=== PATIENT | male | born 1985 | race Hispanic/Latino ===

== ENCOUNTER 2019-09-02 00:52 | Emergency (ER) | payer SELFPAY ==
[2019-09-02] MEDS ORDERED: AMOX/K CLAV 875 MG TAB ONE (01:21)
[2019-09-02] MEDS ORDERED: HYDROCODONE/APAP 10/325 TAB ONE (01:24)
[2019-09-02] MEDS ORDERED: ONDANSETRON 4 MG (ODT) TAB ONE (01:24)
--- NOTE | 2019-09-02 02:05 | ER ---
Nurse's Notes [facility] Name: Adrian Troncoso Age: 34 yrs Sex: Male : 1985 Arrival Date: 09/02/2019 Time: 01:01 Bed 4 Private MD: Diagnosis: Epistaxis;Fracture of nasal bones Presentation: 09/02 01:00 Presenting complaint: Patient states: that he was using a spring loaded shovel to get fc the tile up and when he let go of it with one hand the shovel came back and hit him in the nose. Transition of care: patient was not received from another setting of care. Onset of symptoms was September 02, 2019 at 00:30. Risk Assessment: Do you want to hurt yourself or someone else? Patient reports no desire to harm self or others. Initial Sepsis Screen: Does the patient meet any 2 criteria? No. Patient's initial sepsis screen is negative. Does the patient have a suspected source of infection? No. Patient's initial sepsis screen is negative. Care prior to arrival: Bleeding of injury controlled. 01:00 Method Of Arrival: Ambulatory fc 01:00 Acuity: FRAN 3 fc Historical: - Allergies: 01:09 No Known Allergies; fc - Home Meds: 01:09 None [Active]; fc - PMHx: 01:09 None; fc - PSHx: 01:09 Left forearm surg; fc - Immunization history:: Last tetanus immunization: up to date Flu vaccine is up to date. - Social history:: Smoking status: Patient/guardian denies using tobacco, Patient uses alcohol, occasionally. Patient/guardian denies using street drugs. - Ebola Screening: : Patient negative for fever greater than or equal to 101.5 degrees Fahrenheit, and additional compatible Ebola Virus Disease symptoms Patient denies exposure to infectious person Patient denies travel to an Ebola-affected area in the 21 days before illness onset. Screenin:08 Abuse screen: Denies threats or abuse. Nutritional screening: No deficits noted. fc Tuberculosis screening: No symptoms or risk factors identified. Fall Risk None identified. Assessment: 01:16 General: Appears in no apparent distress. uncomfortable, Behavior is calm, cooperative, jd3 appropriate for age. Pain: Complains of pain in nose Quality of pain is described as pressure, sharp, tender. Neuro: Level of Consciousness is awake, alert, obeys commands, Oriented to person, place, time, situation, Pupils are PERRLA, Denies blurred vision dizziness, numbness diplopia. Cardiovascular: Capillary refill < 3 seconds Patient's skin is warm and dry. Respiratory: Airway is patent Respiratory effort is even, unlabored, Respiratory pattern is regular, symmetrical, Denies cough, shortness of breath. GI: No signs and/or symptoms were reported involving the gastrointestinal system. : No signs and/or symptoms were reported regarding the genitourinary system. EENT: Nares with bleeding noted dried blood noted to NEENA nares. Derm: Skin is intact, Skin is dry, Skin is normal, Skin temperature is warm. Musculoskeletal: Circulation, motion, and sensation intact. Range of motion: intact in all extremities. 02:13 Reassessment: Patient and/or family updated on plan of care and expected duration. Pain bb level reassessed. Patient is alert, oriented x 3, equal unlabored respirations, skin warm/dry/pink. pt verbalized understanding of and agrees to plan of care discharge instructions given. Vital Signs: 01:00 BP 137 / 81; Pulse 84; Resp 18; Temp 98.0(TE); Pulse Ox 99% on R/A; Weight 83.91 kg fc (R); Height 5 ft. 8 in. (172.72 cm); Pain 7/10; 02:14 BP 121 / 77; Pulse 61; Resp 14 S; Temp 97.8(TE); Pulse Ox 97% ; Pain 8/10; bb 01:00 Body Mass Index 28.13 (83.91 kg, 172.72 cm) ED Course: 01:00 Arm band placed on Patient placed in an exam room, on a stretcher. 01:00 Patient has correct armband on for positive identification. Bed in low position. Call light in reach. Side rails up X 1. Pulse ox on. NIBP on. 01:00 No provider procedures requiring assistance completed. 01:01 Patient arrived in ED. cf2 01:03 Emory Long MD is Attending Physician. nelly 01:07 Triage completed. fc 01:12 Curt Tran RN is Primary Nurse. jd3 02:04 Emory Long MD is Referral Physician. nelly 02:04 Thais Martinez MD is Referral Physician. nelly 02:14 Patient did not have IV access during this emergency room visit. bb 02:24 Nasal Bones XRAY In Process Unspecified. EDMS Administered Medications: 01:25 Drug: Augmentin 875 mg Route: PO; jd3 02:15 Follow up: Response: No adverse reaction bb 01:25 Drug: Zofran 4 mg Route: PO; jd3 02:15 Follow up: Response: No adverse reaction bb 01:25 Drug: [place] 10 mg-325 mg 1 tabs Route: PO; jd3 02:15 Follow up: Response: No adverse reaction; RASS: Alert and Calm (0) bb Outcome: 02:04 Discharge ordered by MD. nelly 02:14 Discharged to home ambulatory, with family. bb 02:14 Condition: stable 02:14 Discharge instructions given to patient, Instructed on discharge instructions, follow up and referral plans. no driving heavy equipment, medication usage, Demonstrated understanding of instructions, follow-up care, medications, Prescriptions given X 3. 02:37 Patient left the ED. ea Signatures: Dispatcher [employer] EDMS Emory Long MD MD cha Chretien, Felicia, RN RN Brenda Jordan RN RN Esme Mobley RN Curt Fraga ea, RN RN Cielo Blakely cf2 Corrections: (The following items were deleted from the chart) 01:09 01:00 BP 137 / 81; Pulse 84bpm; Resp 08bpm; Pulse Ox 99% RA; Temp 98.0F Temporal; 83.91 fc kg Reported; Height 5 ft. 8 in.; BMI: 28.1; Pain 7/10; fc
--- NOTE | 2019-09-02 02:06 | EDPHYS ---
Physician Documentation [facility] Name: Adrian Troncoso Age: 34 yrs Sex: Male : 1985 Arrival Date: 09/02/2019 Time: 01:01 Bed 4 Private MD: ED Physician Eomry Long HPI: 09/02 01:15 This 34 yrs old Male presents to ER via Ambulatory with complaints of Nose nelly Problem. 01:15 The patient presents with a nose bleed, that is apparently anterior, occurred after nelly direct blow, that is continuous bright red, nasal trauma, from. Onset: The symptoms/episode began/occurred just prior to arrival. Modifying factors: The symptoms are alleviated by lying down, pressure, the symptoms are aggravated by blowing nose, sitting up. Associated signs and symptoms: Pertinent positives: bleeding, rhinorrhea. Severity of symptoms: At their worst the symptoms were mild moderate in the emergency department the symptoms have improved moderately. The patient has not experienced similar symptoms in the past. Historical: - Allergies: 01:09 No Known Allergies; fc - Home Meds: 01: None [Active]; fc - PMHx: : None; fc - PSHx: 01:09 Left forearm surg; fc - Immunization history:: Last tetanus immunization: up to date Flu vaccine is up to date. - Social history:: Smoking status: Patient/guardian denies using tobacco, Patient uses alcohol, occasionally. Patient/guardian denies using street drugs. - Ebola Screening: : Patient negative for fever greater than or equal to 101.5 degrees Fahrenheit, and additional compatible Ebola Virus Disease symptoms Patient denies exposure to infectious person Patient denies travel to an Ebola-affected area in the 21 days before illness onset. ROS: 01:18 Constitutional: Negative for fever, chills, and weight loss, Eyes: Negative for injury, nelly pain, redness, and discharge, Neck: Negative for injury, pain, and swelling, Cardiovascular: Negative for chest pain, palpitations, and edema, Respiratory: Negative for shortness of breath, cough, wheezing, and pleuritic chest pain, Abdomen/GI: Negative for abdominal pain, nausea, vomiting, diarrhea, and constipation, Back: Negative for injury and pain, : Negative for injury, bleeding, discharge, and swelling, MS/Extremity: Negative for injury and deformity, Skin: Negative for injury, rash, and discoloration, Neuro: Negative for headache, weakness, numbness, tingling, and seizure, Psych: Negative for depression, anxiety, suicide ideation, homicidal ideation, and hallucinations, Allergy/Immunology: Negative for hives, rash, and allergies, Endocrine: Negative for neck swelling, polydipsia, polyuria, polyphagia, and marked weight changes, Hematologic/Lymphatic: Negative for swollen nodes, abnormal bleeding, and unusual bruising. 01:18 ENT: Positive for injury or acute deformity, of the nose, nose bleed. Exam: 01:18 Constitutional: This is a well developed, well nourished patient who is awake, alert, nelly and in no acute distress. Head/Face: Normocephalic, atraumatic. Eyes: Pupils equal round and reactive to light, extra-ocular motions intact. Lids and lashes normal. Conjunctiva and sclera are non-icteric and not injected. Cornea within normal limits. Periorbital areas with no swelling, redness, or edema. Neck: Trachea midline, no thyromegaly or masses palpated, and no cervical lymphadenopathy. Supple, full range of motion without nuchal rigidity, or vertebral point tenderness. No Meningismus. Chest/axilla: Normal chest wall appearance and motion. Nontender with no deformity. No lesions are appreciated. Cardiovascular: Regular rate and rhythm with a normal S1 and S2. No gallops, murmurs, or rubs. Normal PMI, no JVD. No pulse deficits. Respiratory: Lungs have equal breath sounds bilaterally, clear to auscultation and percussion. No rales, rhonchi or wheezes noted. No increased work of breathing, no retractions or nasal flaring. Abdomen/GI: Soft, non-tender, with normal bowel sounds. No distension or tympany. No guarding or rebound. No evidence of tenderness throughout. Back: No spinal tenderness. No costovertebral tenderness. Full range of motion. Male : Normal genitalia with no discharge or lesions. Skin: Warm, dry with normal turgor. Normal color with no rashes, no lesions, and no evidence of cellulitis. MS/ Extremity: Pulses equal, no cyanosis. Neurovascular intact. Full, normal range of motion. Neuro: Awake and alert, GCS 15, oriented to person, place, time, and situation. Cranial nerves II-XII grossly intact. Motor strength 5/5 in all extremities. Sensory grossly intact. Cerebellar exam normal. Normal gait. Psych: Awake, alert, with orientation to person, place and time. Behavior, mood, and affect are within normal limits. 01:18 ENT: Posterior pharynx: Airway: normal, no evidence of obstruction, Tonsils: are normal in appearance, Uvula: normal, midline, non-edematous, no erythema, swelling, that is mild, erythema, is not appreciated, exudate, is not appreciated, peritonsillar mass, is not appreciated. Vital Signs: 01:00 BP 137 / 81; Pulse 84; Resp 18; Temp 98.0(TE); Pulse Ox 99% on R/A; Weight 83.91 kg fc (R); Height 5 ft. 8 in. (172.72 cm); Pain 7/10; 02:14 BP 121 / 77; Pulse 61; Resp 14 S; Temp 97.8(TE); Pulse Ox 97% ; Pain 8/10; bb 01:00 Body Mass Index 28.13 (83.91 kg, 172.72 cm) MDM: 01:03 Patient medically screened. [facility] 01:24 Data reviewed: radiologic studies, plain films. [facility] 09/02 01:14 Order name: Nasal Bones XRAY [facility] 09/02 01:14 Order name: Ice pack; Complete Time: 01:18 [facility] Administered Medications: 01:25 Drug: Augmentin 875 mg Route: PO; jd3 02:15 Follow up: Response: No adverse reaction 01:25 Drug: Zofran 4 mg Route: PO; jd3 02:15 Follow up: Response: No adverse reaction 01:25 Drug: [place] 10 mg-325 mg 1 tabs Route: PO; jd3 02:15 Follow up: Response: No adverse reaction; RASS: Alert and Calm (0) bb Disposition: 09/02/19 02:04 Discharged to Home. Impression: Epistaxis, Fracture of nasal bones. - Condition is Stable. - Discharge Instructions: Nosebleed, Adult, Nosebleed, [id number]. - Prescriptions for Augmentin 875- 125 mg Oral Tablet - take 1 tablet by ORAL route every 12 hours for 10 days; 20 tablet. Tylenol- Codeine #3 300-30 mg Oral Tablet - take 2 tablets by ORAL route every 6 hours As needed; 24 tablet. Afrin (oxymetazoline) 0.05 % Nasal Aerosol, [place] - spray 2 spray by INTRANASAL route 2 times per day; 1 Container. - Medication Reconciliation Form, Thank You Letter, Antibiotic Education, Prescription Opioid Use form. - Follow up: Dr. Emory Long; When: 1 - 2 days; Reason: Recheck today's complaints, Continuance of care, Re-evaluation by your physician. Follow up: Thais Martinez; When: 2 - 3 days; Reason: Recheck today's complaints, Re-evaluation by your physician. - Problem is new. - Symptoms are resolved. Signatures: Dispatcher [employer] EDMS Emory oLng MD MD cha Chretien, Felicia RN RN Esme Galaviz RN RN ea Davies, Jonathon, RN RN jd3 Ballard, Brenda RN bb Corrections: (The following items were deleted from the chart) 02:37 02:04 09/02/2019 02:04 Discharged to Home. Impression: Epistaxis; Fracture of nasal ea bones. Condition is Stable. Discharge Instructions: Nosebleed, Adult, Nosebleed, [id number]. Prescriptions for Augmentin 875-125 mg Oral Tablet - take 1 tablet by ORAL route every 12 hours for 10 days; 20 tablet, Tylenol-Codeine #3 300-30 mg Oral Tablet - take 2 tablets by ORAL route every 6 hours As needed; 24 tablet, Afrin (oxymetazoline) 0.05 % Nasal Aerosol, [place] - spray 2 spray by INTRANASAL route 2 times per day; 1 Container. and Forms are Medication Reconciliation Form, Thank You Letter, Antibiotic Education, Prescription Opioid Use. Follow up: Dr. Emory Long; When: 1 - 2 days; Reason: Recheck today's complaints, Continuance of care, Re-evaluation by your physician. Follow up: Thais Martinez; When: 2 - 3 days; Reason: Recheck today's complaints, Re-evaluation by your physician. Problem is new. Symptoms are resolved. nelly
[2019-09-02 03:01] VITALS: BP 121/77; TEMP 97.8; O2SAT 97
--- NOTE | 2019-09-02 09:43 | RAD REPORT ---
EXAM DESCRIPTION: RAD - Nasal Bones - 09/02/2019 2:24 am CLINICAL HISTORY: Facial pain;Trauma COMPARISON: No comparisons FINDINGS: Mild nasal bone fracture is present with adjacent soft tissue swelling. No additional frac ture seen. Paranasal sinuses and mastoids are clear. IMPRESSION: Mild nasal bone fracture.
== END 2019-09-02 02:37 | disposition home or self-care (01) ==
LOC: ER 00:52
DX: S02.2XXA Fracture of nasal bones, initial encounter for closed fracture (principal); W22.8XXA Striking against or struck by other objects, initial encounter; Y93.89 Activity, other specified; Y92.9 Unspecified place or not applicable
CPT/HCPCS: 70160; 99284